=== PATIENT | male | born 1955 ===

== ENCOUNTER 2020-01-02 08:50 | Emergency (ER) | payer BC, OTHER ==
--- NOTE | 2020-01-02 09:02 | EDM.PDOC ---
ED HPI GENERAL MEDICAL PROBLEM - General Chief Complaint: Respiratory Problem Stated Complaint: SHORTNESS OF BREATH Time Seen by Provider: 01/02/20 09:02 Source of Information: Reports: Patient History Limitations: Reports: No Limitations - History of Present Illness INITIAL COMMENTS - FREE TEXT/NARRATIVE: Patient is a 64-year-old male who is complaining of having exertional shortness of breath after waking up at 5 AM today. Patient has no shortness of breath at rest. He denies any chest pain or pressure. He denies any nausea vomiting or diaphoresis. Patient denies any swelling to his ankles or calfs recently and denies any bloody or tarry stools. He has had no cough or any fever or chills. Patient denies having similar symptoms in the past. He is positive for high blood pressure high cholesterol risk factors negative for smoking cigarettes and family history and diabetes. He is taken nothing for his current symptoms. Onset: Today Duration: Hour(s): (4) Location: Reports: Chest Severity: Mild Improves with: Reports: Rest Worsens with: Reports: Movement Context: Reports: Activity Associated Symptoms: Reports: No Other Symptoms - Related Data Allergies Allergy/AdvReac Type Severity Reaction Status Date / Time No Known Allergies Allergy Verified 01/02/20 09:08 Home Meds: Home Meds Losartan/Hydrochlorothiazide [Losartan-HCTZ 100-25 MG] 1 tab PO DAILY 01/02/20 [ History] Rosuvastatin [Crestor] 10 mg PO DAILY 01/02/20 [History] metFORMIN [Glucophage] 500 mg PO DAILY 01/02/20 [History] ED ROS GENERAL - Review of Systems Review Of Systems: Comprehensive ROS is negative, except as noted in HPI. ED EXAM, GENERAL - Physical Exam Exam: See Below Exam Limited By: No Limitations General Appearance: Alert, No Apparent Distress Head: Atraumatic Neck: Normal Inspection, Supple Respiratory/Chest: No Respiratory Distress, Lungs Clear, Normal Breath Sounds, Chest Non-Tender Cardiovascular: Normal Peripheral Pulses, Regular Rate, Rhythm, No Edema, No JVD GI/Abdominal: Normal Bowel Sounds Back Exam: Normal Inspection Extremities: No Pedal Edema. No: Teetee's Sign, Leg Pain Neurological: Alert, Oriented Psychiatric: Normal Affect Skin Exam: Warm, Dry, Intact. No: Diaphoretic Course - Vital Signs Last Recorded V/S: Last Vital Signs Temp 35.9 C 01/02/20 09:02 Pulse 118 H 01/02/20 10:45 Resp 20 01/02/20 10:45 BP 143/91 H 01/02/20 10:45 Pulse Ox 96 01/02/20 10:45 Patient's CTA of his chest shows him to have multiple pulmonary embolus. He has been started on heparin protocol. [facility] be [facility]. - Orders/Labs/Meds Labs: Laboratory Tests 01/02/20 01/02/20 01/02/20 Range/Units 09:06 09:06 09:06 WBC 10.02 (4.0-11.0) K/uL RBC 5.38 (4.50-5.90) M/uL Hgb 15.8 (13.0-17.0) g/dL Hct 47.3 (38.0-50.0) % MCV 87.9 (80.0-98.0) fL MCH 29.4 (27.0-32.0) pg MCHC 33.4 (31.0-37.0) g/dL RDW Std Deviation 46.6 (28.0-62.0) fl RDW Coeff of Dayanara 15 (11.0-15.0) % Plt Count 198 (150-400) K/uL MPV 10.50 (7.40-12.00) fL Neut % (Auto) 65.8 (48.0-80.0) % Lymph % (Auto) 24.2 (16.0-40.0) % [place] % (Auto) 6.7 (0.0-15.0) % Eos % (Auto) 2.7 (0.0-7.0) % Baso % (Auto) 0.6 (0.0-1.5) % Neut # (Auto) 6.6 H (1.4-5.7) K/uL Lymph # (Auto) 2.4 (0.6-2.4) K/uL [place] # (Auto) 0.7 (0.0-0.8) K/uL Eos # (Auto) 0.3 (0.0-0.7) K/uL Baso # (Auto) 0.1 (0.0-0.1) K/uL Nucleated RBC % 0.0 /100WBC Nucleated RBCs # 0 K/uL D-Dimer, Quantitative 7.56 H (0.0-0.50) mg/L FEU Sodium 143 (136-148) mmol/L Potassium 3.6 (3.5-5.1) mmol/L Chloride 104 (98-107) mmol/L Carbon Dioxide 22.4 (21.0-32.0) mmol/L BUN 21 H (7.0-18.0) mg/dL Creatinine 1.3 (0.8-1.3) mg/dL Est Cr Clr Drug Dosing TNP Estimated GFR (MDRD) 55.9 ml/min Glucose 265 H (74-106) mg/dL Calcium 9.9 (8.5-10.1) mg/dL Total Bilirubin 0.6 (0.2-1.0) mg/dL AST 61 H (15-37) IU/L ALT 98 H (14-63) IU/L Alkaline Phosphatase 69 (46-116) U/L Troponin I 0.076 H* (0.000-0.056) ng/mL Total Protein 7.7 (6.4-8.2) g/dL Albumin 3.9 (3.4-5.0) g/dL Globulin 3.8 (2.6-4.0) g/dL Albumin/Globulin Ratio 1.0 (0.9-1.6) Meds: Medications Discontinued Medications Generic Name Dose Route Start Last Admin Trade Name Freq PRN Reason Stop Dose Admin Aspirin 324 mg 01/02/20 09:06 01/02/20 09:40 Aspirin PO 01/02/20 09:07 Not Given ONETIME ONE Heparin Sodium (Porcine) 4,000 units 01/02/20 11:16 01/02/20 11:30 Heparin Sodium IVPUSH 01/02/20 11:17 4,000 units ONETIME ONE Administration Heparin Sodium/Sodium Chloride 25,000 unit in 500 mls @ 35.38 mls/hr 01/02/20 11:15 01/02/20 11:31 Heparin-1/2ns 25,000 Units/500 IV 12 units/kg/hr TITRATE RADHA 35.38 mls/hr Administration Protocol 12 UNITS/KG/HR Iopamidol 100 ml 01/02/20 10:59 01/02/20 11:15 Isovue Multipack-370 (76%) IVPUSH 01/02/20 11:00 100 ml ONETIME STA Administration Lorazepam 1 mg 01/02/20 10:28 01/02/20 10:47 Ativan IVPUSH 01/02/20 10:29 1 mg ONETIME ONE Administration Sodium Chloride 10 ml 01/02/20 09:06 01/02/20 10:47 Saline Flush FLUSH 10 ml ASDIRECTED PRN Administration Keep Vein Open Sodium Chloride 2.5 ml 01/02/20 09:06 01/02/20 10:47 Saline Flush FLUSH 2.5 ml ASDIRECTED PRN Administration Keep Vein Open Departure - Departure Time of Disposition: 11:00 Disposition: DC/Tfer to Acute Hospital 02 Reason for Transfer *Q: Other (Extensive pulmonary embolus) Condition: Poor Clinical Impression: Pulmonary emboli, Elevated troponin, Dyspnea on exertion Referrals: PCP,Unknown [Primary Care Provider] - Forms: ED Department Discharge Sepsis Event Note - Focused Exam Date Exam was Performed: 01/04/20 Time Exam was Performed: 14:09
[2020-01-02] MEDS ORDERED: Sodium Chloride 0.9% 10 ML Syringe FLUSH PRN (09:06)
[2020-01-02] MEDS ORDERED: Sodium Chloride 0.9% 2.5 ML Syringe FLUSH PRN (09:06)
[2020-01-02] MEDS ORDERED: Aspirin 81 MG Tab.Chew PO ONE (09:06)
[2020-01-02 09:49] LABS: BLOOD UREA NITROGEN,BUN 21 mg/dL (7.0-18.0); CARBON DIOXIDE,CO2 22.4 mmol/L (21.0-32.0); CHLORIDE,CL 104 mmol/L (98-107); GLUCOSE RANDOM 265 mg/dL (74-106); POTASSIUM,K 3.6 mmol/L (3.5-5.1); SODIUM,NA 143 mmol/L (136-148)
--- NOTE | 2020-01-02 09:53 | CR ---
Chest: Portable view of the chest was obtained. Comparison: No previous chest x-ray is available. Heart size and mediastinum are normal. Lungs are clear with no acute parenchymal change. Bony structures are grossly intact. Impression: 1. Nothing acute is identified on portable chest x-ray. Diagnostic code #1 Study was dictated in [place] Standard Time
[2020-01-02] MEDS ORDERED: LORazepam 2 MG/ML SDV IVPUSH ONE (10:28)
[2020-01-02 10:53] VITALS: BP 143/91; PULSE 118
[2020-01-02] MEDS ORDERED: Iopamidol 755 MG/ML 200 ML Multipack Bottle IVPUSH STA (10:59)
[2020-01-02] MEDS ORDERED: Heparin Sod,Pork In 0.45% Nacl 25,000 UNIT/500 ML IV.SOLN IV SCH (11:15)
[2020-01-02] MEDS ORDERED: Heparin Sodium 5,000 Units/ML Vial IVPUSH ONE (11:16)
--- NOTE | 2020-01-02 11:39 | CT ---
CT chest Technique: Multiple axial sections were obtained from above the lung apices inferiorly through the lung bases. Intravenous contrast was utilized. Study has been performed as a pulmonary antegrade protocol. Findings: Significant amount of thrombus is seen within the distal right and left main pulmonary arteries. Thrombus is seen extending into the segmental branches of the upper and lower lobe pulmonary arteries on both sides. Subsegmental clots are also seen. Right ventricle appears somewhat dilated compressing the left ventral compatible with left ventricular dysfunction. Mediastinum and hilar regions show no adenopathy. No pericardial thickening is seen. Visualized upper abdominal structures shows no discrete abnormality. Lap band is in place. Lungs show no acute parenchymal process. No pleural effusions are seen. Thoracic aorta shows no aneurysm. Bone window settings shows scattered degenerative endplate spurring throughout the spine. No acute osseous finding is seen. Impression: 1. Fairly extensive pulmonary emboli causing right ventricular dysfunction. 2. Other findings believed to be incidental. Diagnostic code #5 Study was dictated in [place] Standard Time
== END 2020-01-02 12:28 ==
LOC: MW.ED 08:50
DX: I26.99 Other pulmonary embolism without acute cor pulmonale (principal); R79.89 Other specified abnormal findings of blood chemistry; I10 Essential (primary) hypertension; Z79.84 Long term (current) use of oral hypoglycemic drugs
CPT/HCPCS: 71045; 71275; 80053; 84484; 85025; 85379; 93005; 96365; 96375; 99285; J1644; J2060; Q9967